=== PATIENT | male | born 1980 | race Caucasian/White ===

== ENCOUNTER 2020-08-28 14:21 | Emergency (ER) | payer BC ==
[~2020-08-28] VITALS: Ht 167.6 cm; Wt 102.1 kg
[2020-08-28 14:39] VITALS: BP 162/100; Ht 167.6 cm; Wt 102.1 kg
== END 2020-08-28 17:03 | disposition left against medical advice (07) ==
LOC: ED 14:21
DX: Z53.21 Procedure and treatment not carried out due to patient leaving prior to being seen by health care provider (principal)